=== PATIENT | male | born 1975 | race Caucasian/White ===

== ENCOUNTER 2023-08-07 01:53 | Emergency (ER) | payer SELFPAY ==
[2023-08-07 02:16] LABS: APPEARANCE,URINE CLOUDY; BILIRUBIN,URINE NEGATIVE (NEGATIVE); COLOR,URINE YELLOW; GLUCOSE,URINE NEGATIVE (NEGATIVE); KETONES,URINE NEGATIVE (NEGATIVE); LEUKOCYTE ESTERASE,URINE NEGATIVE (NEGATIVE); NITRITE,URINE NEGATIVE (NEGATIVE); OCCULT BLOOD,URINE LARGE (NEGATIVE); PROTEIN,URINE 100 mg/dL (NEGATIVE)
[2023-08-07] MEDS ORDERED: Ketorolac 30 MG/ML SDV IVPUSH ONE (02:27)
[2023-08-07 02:44] LABS: RBC,URINE TOO NUMEROUS TO CT (0-2/HPF)
[2023-08-07 02:45] LABS: BACTERIA,URINE 1+ (NEGATIVE); EPITHELIAL CELLS,URINE RARE (NONE-FEW); MUCUS,URINE FEW (NONE-MOD)
== END 2023-08-07 04:00 | disposition home or self-care (01) ==
LOC: MW.ED 01:53
DX: N20.0 Calculus of kidney (principal)
CPT/HCPCS: 74176; 81001; 96374; 99284; J1885